=== PATIENT | male | born 1950 | race Caucasian/White ===

== ENCOUNTER → 2017-12-15 08:09 | Outpatient (CLI) | payer MEDICARE, BC ==
[2014-05-18 13:30] VITALS: BMI 32.9
[~2017-12-15 08:09] MED LIST: BENADRYL25 MG PO; IBUPROFEN600 MG PO; OXYCONTIN10 MG PO; PROTONIX40 MG PO; ZOFRAN4 MG PO
== END | disposition home or self-care (01) ==
LOC: D.CT 08:00
DX: M54.12 Radiculopathy, cervical region (principal); R20.2 Paresthesia of skin; R53.1 Weakness

== ENCOUNTER → 2020-03-24 07:36 | Outpatient (CLI) | payer MEDICARE, BC ==
[2014-05-18 13:30] VITALS: BMI 32.9
[2020-03-24 07:57] LABS: BASOPHILS 0.6 % (0-2); EOSINOPHILS 8.5 % (0-7); HEMATOCRIT 42.7 % (42.0-54.0); HEMOGLOBIN 14.9 g/dL (13.5-17.5); IMMATURE GRANULOCYTES 0.6 % (0-5); LYMPHOCYTES 17.3 % (15-50); MCH 31.6 pg (26.0-34.0); MCHC 34.9 g/dL (31.0-37.0); MCV 90.7 fL (80.0-100.0); MEAN PLATELET VOLUME 10.3 fL (7.4-10.4); MONOCYTES 9.2 % (2-11); NEUTROPHILS 63.8 % (40-80); PLATELET COUNT 149 10x3/uL (130-400); RBC 4.71 10x6/uL (4.20-6.10); RDW 12.1 % (11.5-14.5); WBC 4.7 10x3/uL (4.8-10.8)
[2020-03-24 08:15] LABS: APTT 32.1 SECONDS (22.8-39.4); INR 1.02 (0.85-1.17); PROTIME 13.4 SECONDS (11.6-15.0)
[2020-03-24 08:19] LABS: BILIRUBIN - DIRECT 0.33 mg/dL (0.00-0.30); BILIRUBIN - INDIRECT 0.85 mg/dL (0.00-1.00); BILIRUBIN - TOTAL 1.18 mg/dL (0.2-1.3); CREATININE - SERUM 1.2 mg/dL (0.6-1.3); PROTEIN - SERUM 7.4 g/dL (6.4-8.2)
[2020-03-25 09:12] LABS: HEPATITIS C ANTIBODY 0.1 (0.0-0.9)
[2020-03-27 10:08] LABS: ANA REFLEX - ANTICHROMATIN ABS <0.2 AI (0.0-0.9); ANA REFLEX - CENTROMERE B ABS <0.2 AI (0.0-0.9); ANA REFLEX - DBL STRANDED DNA 1 IU/mL (0-9); ANA REFLEX - DIRECT Positive (Negative); ANA REFLEX - JO-1 AB <0.2 AI (0.0-0.9); ANA REFLEX - RNP ANTIBODIES >8.0 AI (0.0-0.9); ANA REFLEX - SCL-70 <0.2 AI (0.0-0.9); ANA REFLEX - SJOGRENS AB SSA <0.2 AI (0.0-0.9); ANA REFLEX - SJOGRENS AB SSB 0.5 AI (0.0-0.9); ANA REFLEX - SMITH AB <0.2 AI (0.0-0.9)
== END | disposition home or self-care (01) ==
LOC: D.MRI 07:36
PROVIDERS: ATTEND Internal Medicine Gastroenterology
DX: R79.89 Other specified abnormal findings of blood chemistry (principal); R16.0 Hepatomegaly, not elsewhere classified; E80.6 Other disorders of bilirubin metabolism

== ENCOUNTER 2020-05-19 05:42 | Day surgery (SDC) | payer MEDICARE, BC ==
[~2020-05-19] VITALS: Ht 188 cm; Wt 118.2 kg
[2020-05-19 06:07] LABS: BASOPHILS 0.8 % (0-2); EOSINOPHILS 8.3 % (0-7); HEMATOCRIT 45.5 % (42.0-54.0); HEMOGLOBIN 15.7 g/dL (13.5-17.5); IMMATURE GRANULOCYTES 0.4 % (0-5); LYMPHOCYTES 21.7 % (15-50); MCHC 34.5 g/dL (31.0-37.0); MCV 89.7 fL (80.0-100.0); MEAN PLATELET VOLUME 10.5 fL (7.4-10.4); MONOCYTES 7.5 % (2-11); NEUTROPHILS 61.3 % (40-80); PLATELET COUNT 160 10x3/uL (130-400); RBC 5.07 10x6/uL (4.20-6.10); RDW 12.1 % (11.5-14.5); WBC 5.2 10x3/uL (4.8-10.8)
[2020-05-19 06:16] LABS: ANION GAP 12.3 mmol/L (8-16); CALCIUM 9.4 mg/dL (8.5-10.1); CREATININE - SERUM 1.4 mg/dL (0.6-1.3); POTASSIUM - SERUM 4.3 mmol/L (3.5-5.1)
[2020-05-19 06:21] LABS: APTT 30.4 SECONDS (22.8-39.4); INR 1.06 (0.85-1.17); PROTIME 13.8 SECONDS (11.6-15.0)
[2020-05-19] MEDS ORDERED: NORVASC10 MG PO (07:08)
[2020-05-19] MEDS ORDERED: FLOMAX0.4 MG PO (07:09)
[2020-05-19] MEDS ORDERED: CENTRUM MEN'S1 EACH PO (07:09)
[2020-05-19] MEDS ORDERED: OMEPRAZOLE40 MG PO (07:09)
[2020-05-19] MEDS ORDERED: ZYRTEC10 MG PO (07:09)
[2020-05-19 07:11] VITALS: Ht 188 cm; Wt 118.2 kg
--- NOTE | 2020-05-19 09:22 | NUR ---
0907 VITAL SIGNS ARE BEING TAKEN ORDERED AND RECORDED ON POST PROCEDURE FORM AND PART OF THE PAPER CHART
--- NOTE | 2020-05-19 15:42 | NUR ---
1107 IV DC'D. CATHETER TIP INTACT. NO BLEEDING AT SITE AFTER HOLDING PRESSURE. BANDAID APPLIED. REVIEWED DISCHARGE INSTRUCTIONS WITH PT AND HIS DAUGHTER WHO VOICE UNDERSTANDING OF INSTRUCTIONS. 1130 VSS. NO HEMATOMA NOTED. NO C/O CP OR SOB. DRESSING CDI. PT IS DRESSED AND READY FOR DISCHARGE HOME.
== END 2020-05-19 11:30 | disposition home or self-care (01) ==
LOC: D.SP 05:42 → D.CT 08:00 → D.SP 11:30
PROVIDERS: Radiology Vascular & Interventional Radiology; ATTEND Internal Medicine Gastroenterology
DX: R94.5 Abnormal results of liver function studies (principal); Z86.010 Personal history of colon polyps; Z80.0 Family history of malignant neoplasm of digestive organs; K76.0 Fatty (change of) liver, not elsewhere classified; E80.6 Other disorders of bilirubin metabolism